=== PATIENT | female | born 1930 | race Caucasian/White ===

== ENCOUNTER 2016-11-21 01:28 | Inpatient (IN) | payer OTHER, MEDICAID ==
[2016-11-21] VITALS (7 sets, daily range): BP systolic 104–159
[~2016-11-21] VITALS: Ht 154.9 cm; Wt 70.3 kg
[2016-11-21] MEDS ORDERED: NACL 0.9% 1,500 ML IV SCH (01:54)
[2016-11-21 02:34] LABS: BASOPHILS # (AUTO) 0.1 K/uL (0.0-0.2); BASOPHILS % (AUTO) 0.6 % (0.0-2.0); EOSINOPHILS % (AUTO) 0.2 % (0.0-4.0); HEMATOCRIT 30.2 % (36-48); HEMOGLOBIN 10.5 g/dL (12.0-16.0); LYMPHOCYTES % (AUTO) 10.3 % (20.5-51.5); MEAN CORPUSCULAR HEMOGLOBIN 32 pg (27-31); MEAN CORPUSCULAR HGB CONC 35 % (32-36); MEAN CORPUSCULAR VOLUME 93 fL (79.0-98.0); MONOCYTES # (AUTO) 1.1 K/uL (0.0-1.0); MONOCYTES % (AUTO) 11.3 % (1.7-9.3); NEUTROPHILS # (AUTO) 7.7 K/uL (1.8-7.7); NEUTROPHILS % (AUTO) 77.6 % (40.0-70.0); PLATELET COUNT (AUTO) 304 K/uL (130-430); RED BLOOD CELL COUNT(AUTO) 3.24 MIL/uL (4.2-6.2); RED CELL DISTRIBUTION WIDTH 12.6 % (9.0-15.0); WHITE BLOOD COUNT (AUTO) 9.9 K/uL (4.8-10.8)
[2016-11-21 02:47] LABS: ANION GAP 14 (5-15); CALCIUM 8.7 mg/dL (8.4-11.0); CREATININE 1.02 mg/dL (0.55-1.30); GLUCOSE 116 mg/dL (70-99); POTASSIUM 3.4 mmol/L (3.5-5.1); UREA NITROGEN, BLOOD 11 mg/dL (8-21)
[2016-11-21 02:51] LABS: INR 1.1 (0.8-1.2); PROTHROMBIN TIME 10.7 SECS (9.5-12.5)
[2016-11-21 03:00] LABS: ALANINE AMINOTRANSFERASE 65 U/L (12-78); ALBUMIN 3.5 g/dL (3.4-4.8); ASPARTATE AMINOTRANSFERASE 61 U/L (10-37); LIPASE 157 U/L (73-393); TOTAL BILIRUBIN 0.7 mg/dL (0.0-1.0)
[2016-11-21 03:02] LABS: SODIUM SERUM 105 mmol/L (136-145)
[2016-11-21 03:03] LABS: CHLORIDE 70 mmol/L (98-107)
[2016-11-21 03:32] LABS: BILIRUBIN,URINE NEGATIVE (NEGATIVE); CLARITY/URINE CLEAR (CLEAR); COLOR,URINE YELLOW (YELLOW); GLUCOSE,URINE NEGATIVE (NEGATIVE); KETONES,URINE TRACE (NEGATIVE); LEUKOCYTE ESTERASE ,URINE NEGATIVE (NEGATIVE); NITRITE, URINE NEGATIVE (NEGATIVE); PROTEIN URINE NEGATIVE (NEGATIVE); UROBILINOGEN,URINE 0.2 (0.2-1.0)
[2016-11-21 03:34] LABS: BLOOD, URINE TRACE (NEGATIVE)
[2016-11-21 03:38] LABS: BACTERIA,URINE FEW /HPF (None Seen); RBC,URINE 0-3 /HPF (0-3); WBC,URINE 0-3 /HPF (0-3)
[2016-11-21] MEDS ORDERED: BENA1TAB19 PO (04:35)
[2016-11-21] MEDS ORDERED: LIP10 PO (04:36)
[2016-11-21] MEDS ORDERED: AMOX-426 PO (04:36)
[2016-11-21] MEDS ORDERED: SULF-261 PO (04:38)
[2016-11-21] MEDS ORDERED: METR500T PO (04:40)
[2016-11-21] MEDS ORDERED: AMLO5TAB4 PO (04:40)
[2016-11-21] MEDS ORDERED: L.RH1CAP PO (04:42)
[2016-11-21] MEDS ORDERED: NACL 0.9% 1,000 ML IV ONE (05:00)
[2016-11-21] MEDS ORDERED: SODIUM CHLORIDE 3% *HI-ALERT* 500 ML IV SCH (05:15)
[2016-11-21] MEDS: metroNIDAZOLE 500 MG TABLET PO SCH ×3 (06:40→21:14)
[2016-11-21] MEDS: amLODIPine BESYLATE 5 MG TABLET PO SCH (08:05)
[2016-11-21 12:35] LABS: ANION GAP 14 (5-15); CALCIUM 8.6 mg/dL (8.4-11.0); CREATININE 0.88 mg/dL (0.55-1.30); GLUCOSE 104 mg/dL (70-99); PHOSPHORUS 3.1 mg/dL (2.7-4.5); POTASSIUM 3.2 mmol/L (3.5-5.1); THYROID STIMULATING HORMONE 0.49 uIu/mL (0.34-4.82); UREA NITROGEN, BLOOD 8 mg/dL (8-21)
[2016-11-21 12:47] LABS: SODIUM SERUM 107 mmol/L (136-145)
[2016-11-21 12:48] LABS: CHLORIDE 74 mmol/L (98-107)
[2016-11-21 18:36] LABS: ALANINE AMINOTRANSFERASE 60 U/L (12-78); ALBUMIN 3.1 g/dL (3.4-4.8); ANION GAP 12 (5-15); ASPARTATE AMINOTRANSFERASE 56 U/L (10-37); CALCIUM 8.5 mg/dL (8.4-11.0); CREATININE 0.85 mg/dL (0.55-1.30); GLUCOSE 114 mg/dL (70-99); POTASSIUM 3.1 mmol/L (3.5-5.1); TOTAL BILIRUBIN 0.8 mg/dL (0.0-1.0); UREA NITROGEN, BLOOD 9 mg/dL (8-21)
[2016-11-21 19:13] LABS: CHLORIDE 78 mmol/L (98-107); SODIUM SERUM 110 mmol/L (136-145)
[2016-11-21] MEDS: ATORVASTATIN 10 MG TABLET PO SCH (21:17)
[2016-11-22 01:02] VITALS: BP_SYST 112
[2016-11-22 01:20] LABS: ALBUMIN 2.9 g/dL (3.4-4.8); CALCIUM 7.8 mg/dL (8.4-11.0); CREATININE 0.78 mg/dL (0.55-1.30); TOTAL BILIRUBIN 0.8 mg/dL (0.0-1.0)
[2016-11-22 01:23] LABS: POTASSIUM 2.8 mmol/L (3.5-5.1)
[2016-11-22] MEDS ORDERED: SODIUM CHLORIDE 3% *HI-ALERT* 500 ML IV ONE (01:45)
[2016-11-22] MEDS ORDERED: POTASSIUM CHLORIDE 20 MEQ TAB.PRT.SR PO ONE (01:45)
[2016-11-22 05:25] VITALS: BP_SYST 128
[2016-11-22] MEDS: metroNIDAZOLE 500 MG TABLET PO SCH ×3 (06:00→20:17)
[2016-11-22 06:30] LABS: BASOPHILS % (AUTO) 0.1 % (0.0-2.0); EOSINOPHILS # (AUTO) 0.1 K/uL (0.0-0.4); EOSINOPHILS % (AUTO) 0.6 % (0.0-4.0); HEMOGLOBIN 9.7 g/dL (12.0-16.0); LYMPHOCYTES % (AUTO) 11.9 % (20.5-51.5); MEAN CORPUSCULAR HEMOGLOBIN 32 pg (27-31); MEAN CORPUSCULAR HGB CONC 35 % (32-36); MEAN CORPUSCULAR VOLUME 94 fL (79.0-98.0); MONOCYTES # (AUTO) 1.5 K/uL (0.0-1.0); MONOCYTES % (AUTO) 17.1 % (1.7-9.3); NEUTROPHILS % (AUTO) 70.3 % (40.0-70.0); PLATELET COUNT (AUTO) 265 K/uL (130-430); RED CELL DISTRIBUTION WIDTH 12.4 % (9.0-15.0); WHITE BLOOD COUNT (AUTO) 8.6 K/uL (4.8-10.8)
[2016-11-22 06:35] LABS: ALANINE AMINOTRANSFERASE 59 U/L (12-78); ALBUMIN 2.9 g/dL (3.4-4.8); ANION GAP 8 (5-15); ASPARTATE AMINOTRANSFERASE 56 U/L (10-37); CALCIUM 8.6 mg/dL (8.4-11.0); CREATININE 0.85 mg/dL (0.55-1.30); GLUCOSE 92 mg/dL (70-99); POTASSIUM 3.1 mmol/L (3.5-5.1); TOTAL BILIRUBIN 0.9 mg/dL (0.0-1.0); UREA NITROGEN, BLOOD 6 mg/dL (8-21)
[2016-11-22 07:18] LABS: CHLORIDE 85 mmol/L (98-107)
[2016-11-22 07:20] LABS: SODIUM SERUM 117 mmol/L (136-145)
[2016-11-22] MEDS: amLODIPine BESYLATE 5 MG TABLET PO SCH (08:28)
[2016-11-22 08:50] VITALS: BP_SYST 126
[2016-11-22] MEDS ORDERED: MAGNESIUM SULFATE 50 ML IV ONE (09:30)
[2016-11-22 13:39] VITALS: BP_SYST 134
[2016-11-22 15:11] LABS: ANION GAP 9 (5-15); CALCIUM 8.6 mg/dL (8.4-11.0); CHLORIDE 93 mmol/L (98-107); GLUCOSE 111 mg/dL (70-99); PHOSPHORUS 2.5 mg/dL (2.7-4.5); POTASSIUM 3.2 mmol/L (3.5-5.1); SODIUM SERUM 124 mmol/L (136-145); UREA NITROGEN, BLOOD 6 mg/dL (8-21)
[2016-11-22 15:58] VITALS: BP_SYST 122
[2016-11-22] MEDS ORDERED: POTASSIUM CHLORIDE 20 MEQ/PKT PACKET PO ONE (16:30)
[2016-11-22] MEDS: NACL 0.9% 1,000 ML IV SCH (18:07)
[2016-11-22 20:00] VITALS: BP_SYST 124
[2016-11-22] MEDS: ATORVASTATIN 10 MG TABLET PO SCH (20:17)
[2016-11-23 01:55] VITALS: BP_SYST 121
[2016-11-23 04:00] VITALS: BP_SYST 135
[2016-11-23] MEDS: NACL 0.9% 1,000 ML IV SCH ×2 (04:36→18:36)
[2016-11-23] MEDS: metroNIDAZOLE 500 MG TABLET PO SCH ×3 (06:00→20:12)
[2016-11-23 06:29] LABS: BASOPHILS % (AUTO) 0.3 % (0.0-2.0); EOSINOPHILS # (AUTO) 0.1 K/uL (0.0-0.4); EOSINOPHILS % (AUTO) 1.8 % (0.0-4.0); HEMATOCRIT 29.4 % (36-48); LYMPHOCYTES # (AUTO) 1.4 K/uL (1.0-5.5); LYMPHOCYTES % (AUTO) 16.9 % (20.5-51.5); MEAN CORPUSCULAR HEMOGLOBIN 32 pg (27-31); MEAN CORPUSCULAR HGB CONC 34 % (32-36); MEAN CORPUSCULAR VOLUME 95 fL (79.0-98.0); MONOCYTES # (AUTO) 1.3 K/uL (0.0-1.0); MONOCYTES % (AUTO) 15.7 % (1.7-9.3); NEUTROPHILS # (AUTO) 5.5 K/uL (1.8-7.7); NEUTROPHILS % (AUTO) 65.3 % (40.0-70.0); PLATELET COUNT (AUTO) 267 K/uL (130-430); WHITE BLOOD COUNT (AUTO) 8.3 K/uL (4.8-10.8)
[2016-11-23 06:44] LABS: ALANINE AMINOTRANSFERASE 50 U/L (12-78); ALBUMIN 2.8 g/dL (3.4-4.8); ANION GAP 8 (5-15); ASPARTATE AMINOTRANSFERASE 43 U/L (10-37); CALCIUM 8.3 mg/dL (8.4-11.0); CHLORIDE 95 mmol/L (98-107); CREATININE 0.68 mg/dL (0.55-1.30); GLUCOSE 97 mg/dL (70-99); POTASSIUM 3.6 mmol/L (3.5-5.1); SODIUM SERUM 126 mmol/L (136-145); TOTAL BILIRUBIN 0.5 mg/dL (0.0-1.0); UREA NITROGEN, BLOOD 5 mg/dL (8-21)
[2016-11-23 08:16] VITALS: BP_SYST 141
[2016-11-23] MEDS: amLODIPine BESYLATE 5 MG TABLET PO SCH (08:59)
[2016-11-23] MEDS ORDERED: POTASSIUM CHLORIDE 40 MEQ, MAGNESIUM SULFATE 4 GM in 0.45% NS 250 ML IV ONE (10:00)
[2016-11-23] MEDS ORDERED: K PHOS 30 MM in NS 250 ML IV ONE (10:00)
[2016-11-23] MEDS ORDERED: MAGNESIUM SULFATE 50 ML IV ONE (12:45)
[2016-11-23 12:52] VITALS: BP_SYST 134
[2016-11-23 16:59] VITALS: BP_SYST 137
[2016-11-23 20:00] VITALS: BP_SYST 109
[2016-11-23] MEDS: ATORVASTATIN 10 MG TABLET PO SCH (20:13)
[2016-11-24] VITALS: BP_SYST 119
[2016-11-24 04:00] VITALS: BP_SYST 125
[2016-11-24] MEDS: metroNIDAZOLE 500 MG TABLET PO SCH ×2 (05:34→13:57)
[2016-11-24] MEDS: NACL 0.9% 1,000 ML IV SCH (05:39)
[2016-11-24 06:54] LABS: ANION GAP 8 (5-15); CALCIUM 8.2 mg/dL (8.4-11.0); CHLORIDE 96 mmol/L (98-107); CREATININE 0.78 mg/dL (0.55-1.30); GLUCOSE 101 mg/dL (70-99); PHOSPHORUS 4.2 mg/dL (2.7-4.5); POTASSIUM 3.9 mmol/L (3.5-5.1); SODIUM SERUM 127 mmol/L (136-145); UREA NITROGEN, BLOOD 7 mg/dL (8-21)
[2016-11-24 08:00] VITALS: BP_SYST 138
[2016-11-24] MEDS: amLODIPine BESYLATE 5 MG TABLET PO SCH (09:07)
[2016-11-24] MEDS ORDERED: K PHOS 30 MM in NS 250 ML IV ONE (10:00)
[2016-11-24 12:00] VITALS: BP_SYST 132
[2016-11-24 12:08] VITALS: BP_SYST 132
== END 2016-11-24 14:45 | DRG 640 ==
LOC: SED 01:28 → STU 04:48 → SMU 11-23 11:24
PROVIDERS: ADMIT Internal Medicine Hospice and Palliative Medicine; ATTEND Internal Medicine Hospice and Palliative Medicine
DX: E87.1 Hypo-osmolality and hyponatremia (principal); G93.41 Metabolic encephalopathy; E46 Unspecified protein-calorie malnutrition; E78.00 Pure hypercholesterolemia, unspecified; E78.5 Hyperlipidemia, unspecified; R53.1 Weakness; R33.9 Retention of urine, unspecified; I10 Essential (primary) hypertension; Z90.49 Acquired absence of other specified parts of digestive tract; Z68.29 Body mass index [BMI] 29.0-29.9, adult
CPT/HCPCS: 36415; 71010; 80048; 80053; 81000-TC; 82533; 83605; 83690-TC; 83735-TC; 83880; 84100-TC; 84295-TC; 84443-TC; 84484; 85025; 85610-TC; 85730-TC; 87040-TC; 87081; 87086; 93005; 96360; 97110-GP; 97116-GP; 97530-GP; 99291; J3475; J3490; J7030; J7050

== ENCOUNTER 2018-06-20 12:02 | Inpatient (IN) | payer OTHER, MEDICAID ==
[~2018-06-20] VITALS: Ht 154.9 cm; Wt 64.9 kg
[2018-06-20 12:02] VITALS: BP_SYST 136
[~2018-06-20 12:02] MED LIST: AMLO5TAB4 PO; BENA1TAB19 PO; L.RH1CAP PO; LIP10 PO
[2018-06-20] MEDS ORDERED: NACL 0.9% 1,000 ML IV ONE (13:00)
[2018-06-20 13:41] LABS: BILIRUBIN,URINE NEGATIVE (NEGATIVE); CLARITY/URINE CLEAR (CLEAR); COLOR,URINE YELLOW (YELLOW); GLUCOSE,URINE NEGATIVE (NEGATIVE); KETONES,URINE NEGATIVE (NEGATIVE); LEUKOCYTE ESTERASE ,URINE NEGATIVE (NEGATIVE); NITRITE, URINE POSITIVE (NEGATIVE); PH,URINE 5.5 (5.0-8.0); PROTEIN URINE NEGATIVE (NEGATIVE); UROBILINOGEN,URINE 0.2 (0.2-1.0)
[2018-06-20 13:43] LABS: BLOOD, URINE TRACE (NEGATIVE)
[2018-06-20 13:55] LABS: BACTERIA,URINE MODERATE /HPF (None Seen); RBC,URINE 0-3 /HPF (0-3); WBC,URINE 0-3 /HPF (0-3)
[2018-06-20 13:56] LABS: MUCUS,URINE None Seen /LPF (None Seen)
[2018-06-20 14:22] LABS: ANION GAP 10 (5-15); CALCIUM 9.1 mg/dL (8.4-11.0); CHLORIDE 100 mmol/L (98-107); CREATININE 1.42 mg/dL (0.55-1.30); GLUCOSE 100 mg/dL (70-99); POTASSIUM 4.3 mmol/L (3.5-5.1); SODIUM SERUM 135 mmol/L (136-145); UREA NITROGEN, BLOOD 30 mg/dL (8-21)
[2018-06-20 14:27] LABS: PROTHROMBIN TIME 9.9 SECS (9.5-12.5)
[2018-06-20 14:28] LABS: ALANINE AMINOTRANSFERASE 18 U/L (12-78); ALBUMIN 3.7 g/dL (3.4-4.8); ASPARTATE AMINOTRANSFERASE 20 U/L (10-37); TOTAL BILIRUBIN 0.5 mg/dL (0.0-1.0)
[2018-06-20 14:38] LABS: BASOPHILS % (AUTO) 0.3 % (0.0-2.0); EOSINOPHILS % (AUTO) 0.9 % (0.0-4.0); HEMATOCRIT 33.5 % (36-48); HEMOGLOBIN 11.3 g/dL (12.0-16.0); LYMPHOCYTES # (AUTO) 1.1 K/uL (1.0-5.5); LYMPHOCYTES % (AUTO) 21.1 % (20.5-51.5); MEAN CORPUSCULAR HEMOGLOBIN 32 pg (27-31); MEAN CORPUSCULAR HGB CONC 34 % (32-36); MEAN CORPUSCULAR VOLUME 95 fL (79.0-98.0); MONOCYTES # (AUTO) 0.9 K/uL (0.0-1.0); NEUTROPHILS # (AUTO) 3.1 K/uL (1.8-7.7); NEUTROPHILS % (AUTO) 60.7 % (40.0-70.0); PLATELET COUNT (AUTO) 186 K/uL (130-430); RED BLOOD CELL COUNT(AUTO) 3.52 MIL/uL (4.2-6.2); RED CELL DISTRIBUTION WIDTH 13.7 % (9.0-15.0); WHITE BLOOD COUNT (AUTO) 5.2 K/uL (4.8-10.8)
[2018-06-20 17:02] VITALS: BP_SYST 146
[2018-06-20] MEDS ORDERED: CAPE500T15 PO (17:14)
[2018-06-20] MEDS ORDERED: BENA20TA75 PO (17:14)
[2018-06-20] MEDS ORDERED: LIP10 PO (17:14)
[2018-06-20] MEDS ORDERED: CALC-823 PO (17:14)
[2018-06-20] MEDS: cefTRIAXone 1 GM in D5W 50 ML IV SCH (20:08)
[2018-06-20 20:36] VITALS: BP_SYST 145
[2018-06-20 23:13] VITALS: BP_SYST 122
[2018-06-21] MEDS ORDERED: LORazepam 2 MG/ML VIAL IVP PRN (06:15)
[2018-06-21] MEDS ORDERED: ONDANSETRON HCL 4 MG/2 ML VIAL IVP PRN (06:15)
[2018-06-21] MEDS: D5/0.45 NS 1,000 ML IV SCH (07:00)
[2018-06-21 08:00] VITALS: BP_SYST 111
[2018-06-21 11:41] VITALS: BP_SYST 137
[2018-06-21 16:42] VITALS: BP_SYST 132
[2018-06-21 20:00] VITALS: BP_SYST 136
[2018-06-21] MEDS: cefTRIAXone 1 GM in D5W 50 ML IV SCH (20:38)
[2018-06-22 00:16] VITALS: BP_SYST 120
[2018-06-22] MEDS: D5/0.45 NS 1,000 ML IV SCH ×4 (02:00→23:29)
[2018-06-22 04:14] VITALS: BP_SYST 126
[2018-06-22 06:46] LABS: BASOPHILS % (AUTO) 0.4 % (0.0-2.0); EOSINOPHILS # (AUTO) 0.3 K/uL (0.0-0.4); EOSINOPHILS % (AUTO) 8.2 % (0.0-4.0); HEMATOCRIT 28.2 % (36-48); HEMOGLOBIN 9.6 g/dL (12.0-16.0); LYMPHOCYTES # (AUTO) 0.6 K/uL (1.0-5.5); LYMPHOCYTES % (AUTO) 16.2 % (20.5-51.5); MEAN CORPUSCULAR HEMOGLOBIN 32 pg (27-31); MEAN CORPUSCULAR HGB CONC 34 % (32-36); MEAN CORPUSCULAR VOLUME 94 fL (79.0-98.0); MONOCYTES # (AUTO) 0.7 K/uL (0.0-1.0); MONOCYTES % (AUTO) 19.4 % (1.7-9.3); NEUTROPHILS # (AUTO) 1.9 K/uL (1.8-7.7); NEUTROPHILS % (AUTO) 55.8 % (40.0-70.0); PLATELET COUNT (AUTO) 140 K/uL (130-430); RED BLOOD CELL COUNT(AUTO) 2.99 MIL/uL (4.2-6.2); RED CELL DISTRIBUTION WIDTH 13.6 % (9.0-15.0); WHITE BLOOD COUNT (AUTO) 3.4 K/uL (4.8-10.8)
[2018-06-22 07:02] LABS: ANION GAP 6 (5-15); C-REACTIVE PROTEIN QUANT 0.8 mg/dL (0-0.5); CALCIUM 8.3 mg/dL (8.4-11.0); CHLORIDE 104 mmol/L (98-107); CREATININE 1.05 mg/dL (0.55-1.30); GLUCOSE 132 mg/dL (70-99); POTASSIUM 3.5 mmol/L (3.5-5.1); SODIUM SERUM 134 mmol/L (136-145); UREA NITROGEN, BLOOD 15 mg/dL (8-21)
[2018-06-22 07:55] VITALS: BP_SYST 129
[2018-06-22 08:37] LABS: ERYTHROCYTE SEDIMENTATION RATE 13 MM/HR (0-20)
[2018-06-22] MEDS ORDERED: ASPIRIN 81 MG TABLET(ECOTRIN) PO ONE (11:45)
[2018-06-22 12:00] VITALS: BP_SYST 150
[2018-06-22 16:00] VITALS: BP_SYST 148
[2018-06-22] MEDS: cefTRIAXone 1 GM in D5W 50 ML IV SCH (19:03)
[2018-06-22 20:38] VITALS: BP_SYST 148
[2018-06-23 00:01] VITALS: BP_SYST 138
[2018-06-23 07:08] LABS: BASOPHILS % (AUTO) 0.2 % (0.0-2.0); EOSINOPHILS # (AUTO) 0.3 K/uL (0.0-0.4); EOSINOPHILS % (AUTO) 6.8 % (0.0-4.0); HEMATOCRIT 27.1 % (36-48); HEMOGLOBIN 9.2 g/dL (12.0-16.0); LYMPHOCYTES # (AUTO) 0.6 K/uL (1.0-5.5); LYMPHOCYTES % (AUTO) 12.1 % (20.5-51.5); MEAN CORPUSCULAR HEMOGLOBIN 32 pg (27-31); MEAN CORPUSCULAR HGB CONC 34 % (32-36); MEAN CORPUSCULAR VOLUME 94 fL (79.0-98.0); MONOCYTES # (AUTO) 0.7 K/uL (0.0-1.0); MONOCYTES % (AUTO) 13.9 % (1.7-9.3); NEUTROPHILS # (AUTO) 3.3 K/uL (1.8-7.7); PLATELET COUNT (AUTO) 120 K/uL (130-430); RED BLOOD CELL COUNT(AUTO) 2.89 MIL/uL (4.2-6.2); RED CELL DISTRIBUTION WIDTH 13.6 % (9.0-15.0)
[2018-06-23 07:30] LABS: WHITE BLOOD COUNT (AUTO) 4.9 K/uL (4.8-10.8)
[2018-06-23 07:41] LABS: ANION GAP 8 (5-15); C-REACTIVE PROTEIN QUANT < 0.2 mg/dL (0-0.5); CHLORIDE 98 mmol/L (98-107); POTASSIUM 3.5 mmol/L (3.5-5.1); SODIUM SERUM 128 mmol/L (136-145)
[2018-06-23 07:42] LABS: CALCIUM 8.1 mg/dL (8.4-11.0); CREATININE 0.97 mg/dL (0.55-1.30); GLUCOSE 132 mg/dL (70-99); UREA NITROGEN, BLOOD 9 mg/dL (8-21)
[2018-06-23 07:52] VITALS: BP_SYST 146
[2018-06-23 08:34] LABS: ERYTHROCYTE SEDIMENTATION RATE 12 MM/HR (0-20)
[2018-06-23] MEDS ORDERED: ASPI-1153 PO (09:45)
[2018-06-23] MEDS ORDERED: CEPH250C PO (09:45)
[2018-06-23 10:12] VITALS: BP_SYST 145
[2018-06-23 11:53] VITALS: BP_SYST 145
== END 2018-06-23 13:15 | disposition home or self-care (01) | DRG 69 ==
LOC: SED 12:02 → SMU 15:34
PROVIDERS: ADMIT Preventive Medicine Preventive Medicine/Occupational Environmental Medicine; ATTEND Preventive Medicine Preventive Medicine/Occupational Environmental Medicine
DX: G45.9 Transient cerebral ischemic attack, unspecified (principal); G93.41 Metabolic encephalopathy; N17.9 Acute kidney failure, unspecified; N39.0 Urinary tract infection, site not specified; E87.0 Hyperosmolality and hypernatremia; E78.00 Pure hypercholesterolemia, unspecified; I10 Essential (primary) hypertension; E86.0 Dehydration; F80.2 Mixed receptive-expressive language disorder; D64.9 Anemia, unspecified; D69.6 Thrombocytopenia, unspecified; E83.52 Hypercalcemia; Z88.5 Allergy status to narcotic agent; Z88.1 Allergy status to other antibiotic agents; Z88.8 Allergy status to other drugs, medicaments and biological substances; Z85.528 Personal history of other malignant neoplasm of kidney; Z92.21 Personal history of antineoplastic chemotherapy
CPT/HCPCS: 36415; 70450-TC; 70551; 71045; 80048; 80053; 81000-TC; 83605; 84484; 85025; 85610-TC; 85651-TC; 85730-TC; 86140; 87040-TC; 87086; 92610-GN; 93005; 95816; 96360; 99285; J0696; J7030; J7060

== ENCOUNTER 2022-03-14 12:41 | Inpatient (IN) | payer OTHER, MEDICAID ==
[~2022-03-14] VITALS: Ht 154.9 cm; Wt 43.1 kg
[~2022-03-14 12:41] MED LIST changes: -AMLO5TAB4 PO; -BENA1TAB19 PO; +CEPH250C PO; -L.RH1CAP PO; +LACT1TAB14 PO; +MULT-1117 PO; +PRO40 PO
[2022-03-14 12:52] VITALS: BP_SYST 101
[2022-03-14] MEDS ORDERED: NACL 0.9% 1,000 ML IV SCH (13:00)
[2022-03-14 13:34] LABS: BASOPHILS % (AUTO) 0.3 % (0.0-2.0); EOSINOPHILS % (AUTO) 0.3 % (0.0-4.0); HEMATOCRIT 30.8 % (36-48); HEMOGLOBIN 10.2 g/dL (12.0-16.0); LYMPHOCYTES # (AUTO) 2.3 K/uL (1.0-5.5); LYMPHOCYTES % (AUTO) 17.3 % (20.5-51.5); MEAN CORPUSCULAR HEMOGLOBIN 32 pg (27-31); MEAN CORPUSCULAR HGB CONC 33 % (32-36); MEAN CORPUSCULAR VOLUME 96 fL (79.0-98.0); MONOCYTES # (AUTO) 0.4 K/uL (0.0-1.0); MONOCYTES % (AUTO) 3.4 % (1.7-9.3); NEUTROPHILS # (AUTO) 10.4 K/uL (1.8-7.7); NEUTROPHILS % (AUTO) 78.7 % (40.0-70.0); PLATELET COUNT (AUTO) 355 K/uL (130-430); WHITE BLOOD COUNT (AUTO) 13.2 K/uL (4.8-10.8)
[2022-03-14 13:45] LABS: ANION GAP 14 (5-15); CALCIUM 8.7 mg/dL (8.4-11.0); CHLORIDE 100 mmol/L (98-107); CREATININE 1.23 mg/dL (0.55-1.30); GLUCOSE 144 mg/dL (70-99); UREA NITROGEN, BLOOD 23 mg/dL (8-21)
[2022-03-14 13:49] LABS: ALANINE AMINOTRANSFERASE 15 U/L (12-78); ALBUMIN 2.1 g/dL (3.4-4.8); ASPARTATE AMINOTRANSFERASE 25 U/L (10-37); TOTAL BILIRUBIN 0.5 mg/dL (0.0-1.0)
[2022-03-14] MEDS ORDERED: NACL 0.9% 1,000 ML IV ONE (14:45)
[2022-03-14] MEDS ORDERED: PIPERACILLIN/TAZO 3.375 GM in NS 50 ML IV ONE (17:00)
[2022-03-14] MEDS ORDERED: PIPERACILLIN/TAZOBACTAM 3.375 GM/VIAL (ZOSYN) IV ONE (17:25)
[2022-03-14] MEDS ORDERED: D5/0.45 NS 1,000 ML IV ONE (18:15)
[2022-03-14 21:45] VITALS: BP_SYST 91
[2022-03-14] MEDS ORDERED: PIPERACILLIN/TAZO 3.375/DEX-IS 50 ML IV SCH (23:20)
[2022-03-15 00:05] VITALS: BP_SYST 100
[2022-03-15] MEDS ORDERED: PIPERACILLIN/TAZOBACTAM 3.375 GM/VIAL (ZOSYN) IV ONE (00:32)
[2022-03-15 05:58] LABS: BASOPHILS % (AUTO) 0.1 % (0.0-2.0); HEMATOCRIT 27.2 % (36-48); HEMOGLOBIN 9.1 g/dL (12.0-16.0); LYMPHOCYTES # (AUTO) 0.6 K/uL (1.0-5.5); LYMPHOCYTES % (AUTO) 2.5 % (20.5-51.5); MEAN CORPUSCULAR HEMOGLOBIN 32 pg (27-31); MEAN CORPUSCULAR HGB CONC 34 % (32-36); MEAN CORPUSCULAR VOLUME 94 fL (79.0-98.0); MONOCYTES # (AUTO) 1.1 K/uL (0.0-1.0); MONOCYTES % (AUTO) 4.6 % (1.7-9.3); NEUTROPHILS # (AUTO) 21.6 K/uL (1.8-7.7); NEUTROPHILS % (AUTO) 92.8 % (40.0-70.0); PLATELET COUNT (AUTO) 322 K/uL (130-430); RED BLOOD CELL COUNT(AUTO) 2.89 MIL/uL (4.2-6.2); RED CELL DISTRIBUTION WIDTH 17.1 % (9.0-15.0); WHITE BLOOD COUNT (AUTO) 23.3 K/uL (4.8-10.8)
[2022-03-15 06:23] LABS: ALANINE AMINOTRANSFERASE 14 U/L (12-78); ALBUMIN 1.6 g/dL (3.4-4.8); ANION GAP 10 (5-15); ASPARTATE AMINOTRANSFERASE 15 U/L (10-37); CALCIUM 7.6 mg/dL (8.4-11.0); CHLORIDE 105 mmol/L (98-107); CREATININE 1.21 mg/dL (0.55-1.30); GLUCOSE 140 mg/dL (70-99); PHOSPHORUS 4.6 mg/dL (2.7-4.5); TOTAL BILIRUBIN 0.3 mg/dL (0.0-1.0); UREA NITROGEN, BLOOD 20 mg/dL (8-21)
[2022-03-15] MEDS: PIPERACILLIN/TAZO 2.25G/DEX-IS 50 ML IV SCH ×3 (06:52→21:11)
[2022-03-15 09:20] VITALS: BP_SYST 96
[2022-03-15] MEDS: LACTOBACILLUS RHAMNOSUS GG 1 CAP CAPSULE PO SCH ×2 (09:20→21:10)
[2022-03-15] MEDS: PANTOPRAZOLE SODIUM 40 MG TAB PO SCH (09:20)
[2022-03-15] MEDS: MULTIVITAMINS TAB 1 TABLET PO SCH (09:20)
[2022-03-15 11:36] VITALS: BP_SYST 99
[2022-03-15] MEDS ORDERED: GADOTERATE MEGLUMINE 7.5 MMOL/15 ML VIAL IV ONE (11:40)
[2022-03-15 16:20] VITALS: BP_SYST 98
[2022-03-15 20:00] VITALS: BP_SYST 101
[2022-03-15] MEDS: ATORVASTATIN 10 MG TABLET PO SCH (21:10)
[2022-03-15] MEDS: ACETAMINOPHEN 325 MG TABLET PO PRN (21:12)
[2022-03-16 00:23] VITALS: BP_SYST 88
[2022-03-16 03:50] VITALS: BP_SYST 107
[2022-03-16] MEDS: PIPERACILLIN/TAZO 2.25G/DEX-IS 50 ML IV SCH ×3 (05:16→22:49)
[2022-03-16 06:18] LABS: HEMATOCRIT 24.8 % (36-48); HEMOGLOBIN 8.5 g/dL (12.0-16.0); MEAN CORPUSCULAR HEMOGLOBIN 32 pg (27-31); MEAN CORPUSCULAR HGB CONC 34 % (32-36); MEAN CORPUSCULAR VOLUME 94 fL (79.0-98.0); PLATELET COUNT (AUTO) 287 K/uL (130-430); RED BLOOD CELL COUNT(AUTO) 2.65 MIL/uL (4.2-6.2); RED CELL DISTRIBUTION WIDTH 17.2 % (9.0-15.0); WHITE BLOOD COUNT (AUTO) 16.3 K/uL (4.8-10.8)
[2022-03-16 07:36] LABS: ANION GAP 10 (5-15); C-REACTIVE PROTEIN QUANT 14.2 mg/dL (0-0.5); CALCIUM 7.8 mg/dL (8.4-11.0); CHLORIDE 105 mmol/L (98-107); CREATININE 1.43 mg/dL (0.55-1.30); GLUCOSE 80 mg/dL (70-99); UREA NITROGEN, BLOOD 21 mg/dL (8-21)
[2022-03-16 08:00] VITALS: BP_SYST 108
[2022-03-16] MEDS: MULTIVITAMINS TAB 1 TABLET PO SCH (09:07)
[2022-03-16] MEDS: PANTOPRAZOLE SODIUM 40 MG TAB PO SCH (09:07)
[2022-03-16] MEDS: LACTOBACILLUS RHAMNOSUS GG 1 CAP CAPSULE PO SCH ×2 (09:07→22:49)
[2022-03-16 10:09] LABS: BASOPHILS % (AUTO) 0.1 % (0.0-2.0); EOSINOPHILS % (AUTO) 0.2 % (0.0-4.0); LYMPHOCYTES # (AUTO) 0.7 K/uL (1.0-5.5); LYMPHOCYTES % (AUTO) 4.1 % (20.5-51.5); MONOCYTES # (AUTO) 0.8 K/uL (0.0-1.0); MONOCYTES % (AUTO) 5.1 % (1.7-9.3); NEUTROPHILS # (AUTO) 14.8 K/uL (1.8-7.7); NEUTROPHILS % (AUTO) 90.5 % (40.0-70.0)
[2022-03-16 10:10] LABS: BAND % (MANUAL) 0 % (0-6); BASOPHILS % (MANUAL) 3 % (0-2); EOSINOPHILS % (MANUAL) 1 % (0-7); LYMPHOCYTES % (MANUAL) 3 % (20-46); MONOCYTES % (MANUAL) 1 % (0-11)
[2022-03-16 10:14] LABS: ERYTHROCYTE SEDIMENTATION RATE 35 MM/HR (0-20)
[2022-03-16 11:56] VITALS: BP_SYST 125
[2022-03-16 16:47] VITALS: BP_SYST 149
[2022-03-16 21:00] VITALS: BP_SYST 135
[2022-03-16] MEDS: ATORVASTATIN 10 MG TABLET PO SCH (22:50)
[2022-03-17] VITALS: BP_SYST 140
[2022-03-17] MEDS: PIPERACILLIN/TAZO 2.25G/DEX-IS 50 ML IV SCH ×3 (06:16→22:08)
[2022-03-17 07:23] LABS: BASOPHILS % (AUTO) 0.4 % (0.0-2.0); EOSINOPHILS # (AUTO) 0.1 K/uL (0.0-0.4); EOSINOPHILS % (AUTO) 0.5 % (0.0-4.0); HEMATOCRIT 23.5 % (36-48); HEMOGLOBIN 7.9 g/dL (12.0-16.0); LYMPHOCYTES # (AUTO) 0.8 K/uL (1.0-5.5); LYMPHOCYTES % (AUTO) 6.5 % (20.5-51.5); MEAN CORPUSCULAR HEMOGLOBIN 31 pg (27-31); MEAN CORPUSCULAR HGB CONC 34 % (32-36); MEAN CORPUSCULAR VOLUME 93 fL (79.0-98.0); MONOCYTES # (AUTO) 0.6 K/uL (0.0-1.0); MONOCYTES % (AUTO) 5.1 % (1.7-9.3); NEUTROPHILS # (AUTO) 10.7 K/uL (1.8-7.7); NEUTROPHILS % (AUTO) 87.5 % (40.0-70.0); PLATELET COUNT (AUTO) 302 K/uL (130-430); RED BLOOD CELL COUNT(AUTO) 2.53 MIL/uL (4.2-6.2); RED CELL DISTRIBUTION WIDTH 17.1 % (9.0-15.0); RETICULOCYTE COUNT 0.7 % (0.5-1.5)
[2022-03-17 07:35] LABS: ALANINE AMINOTRANSFERASE 14 U/L (12-78); ALBUMIN 1.7 g/dL (3.4-4.8); ANION GAP 12 (5-15); ASPARTATE AMINOTRANSFERASE 21 U/L (10-37); C-REACTIVE PROTEIN QUANT 13.6 mg/dL (0-0.5); CALCIUM 8.2 mg/dL (8.4-11.0); CHLORIDE 104 mmol/L (98-107); GLUCOSE 73 mg/dL (70-99); TOTAL BILIRUBIN 0.5 mg/dL (0.0-1.0); UREA NITROGEN, BLOOD 18 mg/dL (8-21)
[2022-03-17 07:37] LABS: WHITE BLOOD COUNT (AUTO) 12.2 K/uL (4.8-10.8)
[2022-03-17 07:40] LABS: TOTAL IRON BIND. CAPACITY 124 ug/dL (250-450)
[2022-03-17 08:06] LABS: ERYTHROCYTE SEDIMENTATION RATE 53 MM/HR (0-20)
[2022-03-17 08:30] VITALS: BP_SYST 148
[2022-03-17] MEDS: LACTOBACILLUS RHAMNOSUS GG 1 CAP CAPSULE PO SCH ×3 (08:44→20:57)
[2022-03-17] MEDS: PANTOPRAZOLE SODIUM 40 MG TAB PO SCH (08:53)
[2022-03-17] MEDS: MULTIVITAMINS TAB 1 TABLET PO SCH (08:53)
[2022-03-17] MEDS: ACETAMINOPHEN 325 MG TABLET PO PRN (15:54)
[2022-03-17 17:00] VITALS: BP_SYST 146
[2022-03-17] MEDS: ATORVASTATIN 10 MG TABLET PO SCH (20:57)
[2022-03-18 00:58] VITALS: BP_SYST 128
[2022-03-18] MEDS: PIPERACILLIN/TAZO 2.25G/DEX-IS 50 ML IV SCH ×3 (05:52→21:32)
[2022-03-18 05:56] VITALS: BP_SYST 122
[2022-03-18 07:54] VITALS: BP_SYST 148
[2022-03-18 08:06] LABS: FOLATE (FOLIC ACID) 6.4 ng/mL (>3.0)
[2022-03-18 08:24] LABS: ANION GAP 14 (5-15); C-REACTIVE PROTEIN QUANT 8.7 mg/dL (0-0.5); CALCIUM 8.1 mg/dL (8.4-11.0); CHLORIDE 103 mmol/L (98-107); CREATININE 1.11 mg/dL (0.55-1.30); GLUCOSE 74 mg/dL (70-99); UREA NITROGEN, BLOOD 15 mg/dL (8-21)
[2022-03-18 08:39] LABS: BASOPHILS % (AUTO) 0.3 % (0.0-2.0); EOSINOPHILS # (AUTO) 0.1 K/uL (0.0-0.4); EOSINOPHILS % (AUTO) 0.6 % (0.0-4.0); HEMATOCRIT 27.7 % (36-48); HEMOGLOBIN 9.5 g/dL (12.0-16.0); LYMPHOCYTES # (AUTO) 0.6 K/uL (1.0-5.5); LYMPHOCYTES % (AUTO) 6.8 % (20.5-51.5); MEAN CORPUSCULAR HEMOGLOBIN 32 pg (27-31); MEAN CORPUSCULAR HGB CONC 34 % (32-36); MEAN CORPUSCULAR VOLUME 94 fL (79.0-98.0); MONOCYTES # (AUTO) 0.6 K/uL (0.0-1.0); MONOCYTES % (AUTO) 7.1 % (1.7-9.3); NEUTROPHILS # (AUTO) 7.6 K/uL (1.8-7.7); NEUTROPHILS % (AUTO) 85.2 % (40.0-70.0); PLATELET COUNT (AUTO) 298 K/uL (130-430); RED BLOOD CELL COUNT(AUTO) 2.96 MIL/uL (4.2-6.2); RED CELL DISTRIBUTION WIDTH 16.9 % (9.0-15.0); WHITE BLOOD COUNT (AUTO) 8.9 K/uL (4.8-10.8)
[2022-03-18 09:39] LABS: ERYTHROCYTE SEDIMENTATION RATE 59 MM/HR (0-20)
[2022-03-18] MEDS: MULTIVITAMINS TAB 1 TABLET PO SCH (10:29)
[2022-03-18] MEDS: LACTOBACILLUS RHAMNOSUS GG 1 CAP CAPSULE PO SCH ×2 (10:29→21:28)
[2022-03-18] MEDS: PANTOPRAZOLE SODIUM 40 MG TAB PO SCH (10:29)
[2022-03-18] MEDS ORDERED: POTASSIUM CHLORIDE 20 MEQ TAB.PRT.SR PO ONE (13:30)
[2022-03-18 16:11] VITALS: BP_SYST 150
[2022-03-18 19:57] VITALS: BP_SYST 137
[2022-03-18 20:09] VITALS: BP_SYST 113
[2022-03-18] MEDS: ATORVASTATIN 10 MG TABLET PO SCH (21:32)
[2022-03-19 00:53] VITALS: BP_SYST 148
[2022-03-19] MEDS: PIPERACILLIN/TAZO 2.25G/DEX-IS 50 ML IV SCH ×3 (05:52→22:08)
[2022-03-19 07:01] LABS: BASOPHILS % (AUTO) 0.2 % (0.0-2.0); EOSINOPHILS # (AUTO) 0.1 K/uL (0.0-0.4); EOSINOPHILS % (AUTO) 0.7 % (0.0-4.0); HEMATOCRIT 25.7 % (36-48); HEMOGLOBIN 8.9 g/dL (12.0-16.0); LYMPHOCYTES # (AUTO) 0.6 K/uL (1.0-5.5); LYMPHOCYTES % (AUTO) 6.1 % (20.5-51.5); MEAN CORPUSCULAR HEMOGLOBIN 32 pg (27-31); MEAN CORPUSCULAR HGB CONC 35 % (32-36); MEAN CORPUSCULAR VOLUME 93 fL (79.0-98.0); MONOCYTES # (AUTO) 1.1 K/uL (0.0-1.0); MONOCYTES % (AUTO) 11.1 % (1.7-9.3); NEUTROPHILS # (AUTO) 7.8 K/uL (1.8-7.7); NEUTROPHILS % (AUTO) 81.9 % (40.0-70.0); PLATELET COUNT (AUTO) 275 K/uL (130-430); RED BLOOD CELL COUNT(AUTO) 2.76 MIL/uL (4.2-6.2); RED CELL DISTRIBUTION WIDTH 17.2 % (9.0-15.0); WHITE BLOOD COUNT (AUTO) 9.6 K/uL (4.8-10.8)
[2022-03-19 07:31] LABS: ANION GAP 11 (5-15); C-REACTIVE PROTEIN QUANT 6.4 mg/dL (0-0.5); CHLORIDE 106 mmol/L (98-107); CREATININE 0.98 mg/dL (0.55-1.30); GLUCOSE 97 mg/dL (70-99); UREA NITROGEN, BLOOD 11 mg/dL (8-21)
[2022-03-19 07:47] VITALS: BP_SYST 136
[2022-03-19 08:25] LABS: ERYTHROCYTE SEDIMENTATION RATE 50 MM/HR (0-20)
[2022-03-19] MEDS: PANTOPRAZOLE SODIUM 40 MG TAB PO SCH (09:19)
[2022-03-19] MEDS: NEOMYCIN SULFATE 500 MG TABLET PO SCH ×2 (09:19→20:20)
[2022-03-19] MEDS: AMOXICILLIN 500 MG CAPSULE PO SCH ×2 (09:20→20:20)
[2022-03-19] MEDS: MULTIVITAMINS TAB 1 TABLET PO SCH (09:20)
[2022-03-19] MEDS: LACTOBACILLUS RHAMNOSUS GG 1 CAP CAPSULE PO SCH ×2 (09:20→20:20)
[2022-03-19] MEDS ORDERED: GOLYTELY / COLYTE SOLUTION 4 LITERS PO ONE (10:00)
[2022-03-19 11:45] VITALS: BP_SYST 157
[2022-03-19] MEDS: ONDANSETRON HCL 4 MG/2 ML VIAL IVP PRN ×3 (12:19→22:40)
[2022-03-19] MEDS: ACETAMINOPHEN 325 MG TABLET PO PRN (12:24)
[2022-03-19] MEDS: D5LR 1,000 ML IV SCH (14:13)
[2022-03-19 17:02] VITALS: BP_SYST 125
[2022-03-19 20:00] VITALS: BP_SYST 162
[2022-03-19] MEDS: ATORVASTATIN 10 MG TABLET PO SCH (20:20)
[2022-03-19 23:00] VITALS: BP_SYST 162
[2022-03-20] VITALS: BP_SYST 163
[2022-03-20 04:53] VITALS: BP_SYST 156
[2022-03-20] MEDS: D5LR 1,000 ML IV SCH ×2 (04:59→15:56)
[2022-03-20] MEDS: PIPERACILLIN/TAZO 2.25G/DEX-IS 50 ML IV SCH ×3 (05:08→21:26)
[2022-03-20 08:25] LABS: BASOPHILS % (AUTO) 0.4 % (0.0-2.0); EOSINOPHILS # (AUTO) 0.1 K/uL (0.0-0.4); EOSINOPHILS % (AUTO) 1.7 % (0.0-4.0); HEMOGLOBIN 9.5 g/dL (12.0-16.0); LYMPHOCYTES # (AUTO) 0.8 K/uL (1.0-5.5); LYMPHOCYTES % (AUTO) 10.8 % (20.5-51.5); MEAN CORPUSCULAR HEMOGLOBIN 32 pg (27-31); MEAN CORPUSCULAR HGB CONC 34 % (32-36); MEAN CORPUSCULAR VOLUME 94 fL (79.0-98.0); MONOCYTES % (AUTO) 14.2 % (1.7-9.3); NEUTROPHILS # (AUTO) 5.3 K/uL (1.8-7.7); NEUTROPHILS % (AUTO) 72.9 % (40.0-70.0); PLATELET COUNT (AUTO) 294 K/uL (130-430); RED BLOOD CELL COUNT(AUTO) 2.99 MIL/uL (4.2-6.2); RED CELL DISTRIBUTION WIDTH 17.3 % (9.0-15.0); WHITE BLOOD COUNT (AUTO) 7.2 K/uL (4.8-10.8)
[2022-03-20 08:32] LABS: ALANINE AMINOTRANSFERASE 14 U/L (12-78); ALBUMIN 1.7 g/dL (3.4-4.8); ANION GAP 10 (5-15); ASPARTATE AMINOTRANSFERASE 13 U/L (10-37); C-REACTIVE PROTEIN QUANT 7.5 mg/dL (0-0.5); CHLORIDE 107 mmol/L (98-107); CREATININE 0.82 mg/dL (0.55-1.30); GLUCOSE 114 mg/dL (70-99); TOTAL BILIRUBIN 0.3 mg/dL (0.0-1.0); UREA NITROGEN, BLOOD 7 mg/dL (8-21)
[2022-03-20 08:37] LABS: INR 1.1 (0.8-1.2); PROTHROMBIN TIME 11.6 SECS (9.5-12.5)
[2022-03-20] MEDS: AMOXICILLIN 500 MG CAPSULE PO SCH ×2 (09:00→21:25)
[2022-03-20] MEDS: PANTOPRAZOLE SODIUM 40 MG TAB PO SCH (09:05)
[2022-03-20] MEDS: NEOMYCIN SULFATE 500 MG TABLET PO SCH ×2 (09:05→21:25)
[2022-03-20] MEDS: LACTOBACILLUS RHAMNOSUS GG 1 CAP CAPSULE PO SCH ×2 (09:05→21:25)
[2022-03-20] MEDS: MULTIVITAMINS TAB 1 TABLET PO SCH (09:05)
[2022-03-20] MEDS ORDERED: POTASSIUM CHLORIDE 20 MEQ TAB.PRT.SR PO ONE (10:15)
[2022-03-20 10:58] LABS: ERYTHROCYTE SEDIMENTATION RATE 33 MM/HR (0-20)
[2022-03-20] MEDS ORDERED: NS IRRIG SOLN 1000 ML IR ONE (12:40)
[2022-03-20] MEDS ORDERED: ONDANSETRON HCL 4 MG/2 ML VIAL ONE (12:40)
[2022-03-20] MEDS ORDERED: PROPOFOL 200MG/ 20ML VIAL (DIPRIVAN) IV ONE (12:40)
[2022-03-20] MEDS ORDERED: DEXAMETHASONE SOD PHOSPHATE 4 MG/ML VIAL ONE (12:40)
[2022-03-20] MEDS ORDERED: SUGAMMADEX SODIUM 200 MG/2 ML VIAL IV ONE (12:40)
[2022-03-20] MEDS ORDERED: SEVOFLURANE 15 MIN GAS INH ONE (12:40)
[2022-03-20] MEDS ORDERED: LR 1,000 ML IV.SOLN IV ONE (12:40)
[2022-03-20] MEDS ORDERED: ROCURONIUM BROMIDE 10 MG/ML (ZEMURON) ONE (12:40)
[2022-03-20] MEDS ORDERED: SUCCINYLCHOLINE CHLORIDE 20 MG/ML(QUELICIN) ONE (12:40)
[2022-03-20] MEDS ORDERED: fentaNYL CITRATE/PF 100 MCG/2 ML AMP ONE (12:40)
[2022-03-20 13:12] VITALS: BP_SYST 134
[2022-03-20] MEDS ORDERED: ACETAMINOPHEN I.V. 1000 MG 100 ML IV ONE (13:13)
[2022-03-20] MEDS ORDERED: MORPHINE 4 MG INJ. 4 MG/ML VIAL IVP PRN ×3 (14:00)
[2022-03-20] MEDS ORDERED: ONDANSETRON HCL 4 MG/2 ML VIAL IVP PRN ×2 (14:00)
[2022-03-20 18:49] VITALS: BP_SYST 115
[2022-03-20 20:00] VITALS: BP_SYST 124
[2022-03-20] MEDS: ATORVASTATIN 10 MG TABLET PO SCH (21:25)
[2022-03-21 00:16] VITALS: BP_SYST 127
[2022-03-21] MEDS: PIPERACILLIN/TAZO 2.25G/DEX-IS 50 ML IV SCH ×2 (06:31→16:03)
[2022-03-21] MEDS: D5LR 1,000 ML IV SCH ×2 (06:31→16:05)
[2022-03-21 07:10] LABS: BASOPHILS % (AUTO) 0.2 % (0.0-2.0); HEMATOCRIT 24.5 % (36-48); HEMOGLOBIN 8.5 g/dL (12.0-16.0); LYMPHOCYTES # (AUTO) 0.5 K/uL (1.0-5.5); LYMPHOCYTES % (AUTO) 4.8 % (20.5-51.5); MEAN CORPUSCULAR HEMOGLOBIN 32 pg (27-31); MEAN CORPUSCULAR HGB CONC 35 % (32-36); MEAN CORPUSCULAR VOLUME 93 fL (79.0-98.0); MONOCYTES # (AUTO) 0.9 K/uL (0.0-1.0); MONOCYTES % (AUTO) 9.1 % (1.7-9.3); NEUTROPHILS # (AUTO) 8.8 K/uL (1.8-7.7); NEUTROPHILS % (AUTO) 85.9 % (40.0-70.0); PLATELET COUNT (AUTO) 269 K/uL (130-430); RED BLOOD CELL COUNT(AUTO) 2.63 MIL/uL (4.2-6.2); RED CELL DISTRIBUTION WIDTH 17.2 % (9.0-15.0); WHITE BLOOD COUNT (AUTO) 10.3 K/uL (4.8-10.8)
[2022-03-21 08:00] VITALS: BP_SYST 116
[2022-03-21 08:06] LABS: ANION GAP 9 (5-15); C-REACTIVE PROTEIN QUANT 4.9 mg/dL (0-0.5); CALCIUM 7.6 mg/dL (8.4-11.0); CHLORIDE 106 mmol/L (98-107); CREATININE 0.88 mg/dL (0.55-1.30); GLUCOSE 179 mg/dL (70-99); UREA NITROGEN, BLOOD 7 mg/dL (8-21)
[2022-03-21] MEDS: AMOXICILLIN 500 MG CAPSULE PO SCH (09:49)
[2022-03-21] MEDS: PANTOPRAZOLE SODIUM 40 MG TAB PO SCH (09:49)
[2022-03-21] MEDS: MULTIVITAMINS TAB 1 TABLET PO SCH (09:49)
[2022-03-21] MEDS: LACTOBACILLUS RHAMNOSUS GG 1 CAP CAPSULE PO SCH (09:49)
[2022-03-21] MEDS: NEOMYCIN SULFATE 500 MG TABLET PO SCH (09:49)
[2022-03-21 10:34] LABS: ERYTHROCYTE SEDIMENTATION RATE 15 MM/HR (0-20)
[2022-03-21 11:40] VITALS: BP_SYST 120
[2022-03-21] MEDS ORDERED: POTASSIUM CHLORIDE 20 MEQ TAB.PRT.SR PO ONE (12:00)
[2022-03-21 17:30] LABS: BILIRUBIN,URINE NEGATIVE (NEGATIVE); BLOOD, URINE 1+ (NEGATIVE); CLARITY/URINE SL CLOUDY (CLEAR); COLOR,URINE YELLOW (YELLOW); GLUCOSE,URINE NEGATIVE (NEGATIVE); KETONES,URINE TRACE (NEGATIVE); LEUKOCYTE ESTERASE ,URINE NEGATIVE (NEGATIVE); NITRITE, URINE NEGATIVE (NEGATIVE); PH,URINE 5.5 (5.0-8.0); PROTEIN URINE 1+ (NEGATIVE); UROBILINOGEN,URINE 0.2 (0.2-1.0)
[2022-03-21 17:43] LABS: BACTERIA,URINE FEW /HPF (None Seen); URINE AMORPHOUS URATE 2+ /HPF (None Seen); WBC,URINE 0-3 /HPF (0-3)
[2022-03-21 18:58] VITALS: BP_SYST 127
[2022-03-22 01:18] VITALS: BP_SYST 150
[2022-03-22 05:24] VITALS: BP_SYST 135
[2022-03-22 06:23] VITALS: BP_SYST 135
[2022-03-22 07:03] LABS: BASOPHILS % (AUTO) 0.2 % (0.0-2.0); EOSINOPHILS # (AUTO) 0.2 K/uL (0.0-0.4); EOSINOPHILS % (AUTO) 2.4 % (0.0-4.0); HEMATOCRIT 24.6 % (36-48); HEMOGLOBIN 8.6 g/dL (12.0-16.0); LYMPHOCYTES % (AUTO) 13.2 % (20.5-51.5); MEAN CORPUSCULAR HEMOGLOBIN 33 pg (27-31); MEAN CORPUSCULAR HGB CONC 35 % (32-36); MEAN CORPUSCULAR VOLUME 93 fL (79.0-98.0); MONOCYTES # (AUTO) 1.1 K/uL (0.0-1.0); MONOCYTES % (AUTO) 14.5 % (1.7-9.3); NEUTROPHILS # (AUTO) 5.1 K/uL (1.8-7.7); NEUTROPHILS % (AUTO) 69.7 % (40.0-70.0); PLATELET COUNT (AUTO) 279 K/uL (130-430); RED BLOOD CELL COUNT(AUTO) 2.64 MIL/uL (4.2-6.2); RED CELL DISTRIBUTION WIDTH 17.1 % (9.0-15.0); WHITE BLOOD COUNT (AUTO) 7.4 K/uL (4.8-10.8)
[2022-03-22] MEDS: PIPERACILLIN/TAZO 2.25G/DEX-IS 50 ML IV SCH ×2 (07:04→07:06)
[2022-03-22] MEDS: AMOXICILLIN 500 MG CAPSULE PO SCH ×2 (07:06→10:37)
[2022-03-22] MEDS: ATORVASTATIN 10 MG TABLET PO SCH (07:06)
[2022-03-22] MEDS: LACTOBACILLUS RHAMNOSUS GG 1 CAP CAPSULE PO SCH ×2 (07:06→10:36)
[2022-03-22] MEDS: NEOMYCIN SULFATE 500 MG TABLET PO SCH ×2 (07:07→10:37)
[2022-03-22 07:51] LABS: ERYTHROCYTE SEDIMENTATION RATE 21 MM/HR (0-20)
[2022-03-22 08:00] VITALS: BP_SYST 139
[2022-03-22 09:06] LABS: ALANINE AMINOTRANSFERASE 16 U/L (12-78); ALBUMIN 1.5 g/dL (3.4-4.8); ANION GAP 7 (5-15); C-REACTIVE PROTEIN QUANT 3.1 mg/dL (0-0.5); CALCIUM 7.6 mg/dL (8.4-11.0); CHLORIDE 106 mmol/L (98-107); CREATININE 0.92 mg/dL (0.55-1.30); GLUCOSE 98 mg/dL (70-99); TOTAL BILIRUBIN 0.2 mg/dL (0.0-1.0); UREA NITROGEN, BLOOD 5 mg/dL (8-21)
[2022-03-22 10:15] LABS: ASPARTATE AMINOTRANSFERASE 24 U/L (10-37)
[2022-03-22] MEDS: MULTIVITAMINS TAB 1 TABLET PO SCH (10:36)
[2022-03-22] MEDS: PANTOPRAZOLE SODIUM 40 MG TAB PO SCH (10:37)
[2022-03-22] MEDS: D5LR 1,000 ML IV SCH (10:39)
[2022-03-22 12:26] VITALS: BP_SYST 145
[2022-03-22 17:18] VITALS: BP_SYST 142
== END 2022-03-22 16:00 | disposition hospice, home (50) | DRG 853 ==
LOC: SED 12:41 → SMU 18:01
PROVIDERS: ADMIT Preventive Medicine Preventive Medicine/Occupational Environmental Medicine; ATTEND Preventive Medicine Preventive Medicine/Occupational Environmental Medicine
PROC: 0D1L0Z4 Bypass Transverse Colon to Cutaneous, Open Approach (ICD-10-PCS; principal; 2022-03-20 12:40)
DX: A41.9 Sepsis, unspecified organism (principal); E43 Unspecified severe protein-calorie malnutrition; C19 Malignant neoplasm of rectosigmoid junction; K62.5 Hemorrhage of anus and rectum; N39.0 Urinary tract infection, site not specified; K52.9 Noninfective gastroenteritis and colitis, unspecified; E78.00 Pure hypercholesterolemia, unspecified; D64.9 Anemia, unspecified; E88.09 Other disorders of plasma-protein metabolism, not elsewhere classified; E83.51 Hypocalcemia; E83.52 Hypercalcemia; Z20.822 Contact with and (suspected) exposure to COVID-19; F03.90 Unspecified dementia, unspecified severity, without behavioral disturbance, psychotic disturbance, mood disturbance, and anxiety; I10 Essential (primary) hypertension; E87.6 Hypokalemia; Z66 Do not resuscitate; Z88.5 Allergy status to narcotic agent; Z88.8 Allergy status to other drugs, medicaments and biological substances; Z88.1 Allergy status to other antibiotic agents; Z91.041 Radiographic dye allergy status; Z85.048 Personal history of other malignant neoplasm of rectum, rectosigmoid junction, and anus; Z85.528 Personal history of other malignant neoplasm of kidney; Z92.3 Personal history of irradiation
CPT/HCPCS: 36415; 71045; 72196; 76376; 80048; 80053; 81000; 82272; 82378; 82607; 82728; 82746; 83540; 83550; 83605; 83735; 84100; 85007; 85025; 85027; 85044; 85610-TC; 85651-TC; 85730-TC; 86140; 86886; 86900; 86901; 87040; 87081; 87230-TC; 93005; 96361; 96365; 97116-GP; 97163-GP; 99285; A9575; J0131; J0330; J1100; J2270; J2405; J2543; J2704; J3010; J3490; J7120; Q9967